=== PATIENT | female | born 1960 | race Caucasian/White ===

== ENCOUNTER → 2016-05-30 | Outpatient (CLI) | payer MEDICARE, MEDICAID ==
[~2016-05-30] VITALS: Ht 157.5 cm; Wt 110.4 kg
[~2016-05-30] MED LIST: ABILIFY30 MG PO; ADDERALL XR15 MG PO; ADDERALL XR20 MG PO; ADDERALL20 MG PO; ADIPEX-P37.5 MG PO; ALBUTEROL0.09 MG/A1 IH; AMBIEN 10MG10 MG PO; AMBIEN 5MG TABLE5 MG PO; AMBIEN10 MG PO; ASPI81EC PO; ASPIRIN 32325 MG/TAB PO; ASPIRIN 81M81 MG/TA2 PO; ASPIRIN E.C. 8181 MG PO; ATARAX 25MG25 MG/TAB PO; ATARAX50 MG; ATARAX50 MG PO; ATENOLOL50 MG PO; ATIVAN 1MG T1 MG/TAB PO; ATIVAN1 MG PO; ATROVENT INHALE14 GM IH; AUGMENTIN 875 M1 TAB PO; B-12500 MCG PO; BUPROPION HCL150 MG PO; CALCIUM 600600 M2 PO; CALCIUM 600MG+D1 TAB PO; CALCIUM CITRAT200 M1 PO; CALCIUM CITRATE1 TA1 PO; CALCIUM600 M1 PO; CANA300T PO; CARDIZEM 30MG T30 MG; CARDIZEM CD 24240 MG PO; CARDIZEM120 MG PO; CEPHALEXIN500 M1 PO; CIPRO 500MG TA500 MG PO; COLACE100 MG/10 PO; COMBINATION CREAM TP; COZAAR 50MG50 MG/TAB PO; CYCLOBENZAPRINE10 MG PO; CYMBALTA 60MG60 MG PO; D-31000 IU PO; DALIRESP PO; DALIRESP500 MCG PO; DARVOCET N 101 UDTAB PO; DEPAKENE250 MG PO; DEPAKOTE500 M1 PO; DILAUDID 2MG TAB2 MG PO; DITROPAN XL10 MG PO; EFFEXOR75 MG PO; ETODOLAC400 MG PO; FAMILY PHARMAC0.4 MG PO; FASTIN30 MG PO; FERRATE325 MG PO; FERROUS SULFAT324 MG PO; GEODON 40MG40 MG PO; GEODON20 MG PO; GEODON60 MG PO; GEODON80 MG PO; HYDROCORTISO28.35 GM TP; HYDROXYZINE50 MG PO; HYZAAR 50-12.1 UDTAB PO; IBU-8800 MG PO; IBUPROFEN200 M1 PO; IBUPROFEN800 MG PO; IMITREX100 MG PO; INVOKANA PO; IRON65 MG PO; Iron; JANUVIA 100MG100 MG PO; KLONOPIN 0.5MG0.5 MG PO; KLONOPIN 1MG1 MG PO; LASIX 20MG TABL20 MG PO; LEVOTHYROXIN0.075 MG PO; LEVOXYL0.025 MG PO; LEVOXYL0.05 MG PO; LEVOXYL0.075 MG PO; LIORESAL 1010 MG/TAB PO; LODINE400 MG PO; LOPID 600M600 MG/TAB PO; LOPID600 MG PO; LORTAB 10/500 51 TAB PO; LORTAB PO; MAXALT10 MG PO; MOTRIN800 MG PO; MOVANTIK25 MG PO; MULTIPLE VITAMI1 CAP PO; MULTIPLE VITAMI1 T23 PO; MULTIPLE VITAMI1 TA7 PO; MYRBETR50MG PO; NAPROSYN 2250 MG/TAB PO; NASAL SPRAY 1515 ML NS; NATURE'S BLE1000 MCG PO; NEURONTIN600 MG/TAB PO; NEURONTIN800 MG/TAB PO; OMEPRAZOLE D/R20 MG PO; OMEPRAZOLE20 MG PO; OXYBUTYNIN5 MG PO; OXYCODONE5 MG PO; OXYCONTIN 20MG20 MG PO; OXYCONTIN30 MG PO; OXYCONTIN60 MG PO; PAMELOR PO; PEPCID 20MG TAB20 MG PO; PERCOCET 325 MG1 TA2 PO; PERCOCET 325 MG1 TAB PO; PERCOCET 5/321 UDTAB PO; PERCOCET 500 MG1 TAB PO; PERCR 7.5 PO; PHENERGAN 25 TA25 MG PO; PHENERGAN W/CO120 ML PO; PHENERGAN25 MG RC; PHENTERMINE15 MG; PRAVACHOL 40MG40 MG PO; PRAVACHOL10 MG; PRIL40 PO; PRILOSEC 20MG20 MG PO; PRILOSEC PO; PROVENTIL0.09 MG/A1 IH; PROVIGIL200 MG PO; RANITIDINE 7575 MG PO; RANITIDINE150 MG PO; REMERON15 MG PO; RISPERDAL0.5 MG PO; RITALIN 20M20 MG/TAB PO; RITALIN10 MG PO; RITE AID CALCI600 MG PO; RT ALBUTER2.5 MG/0.5 IH; SALICYLIC ACID; SENNA LAX8.6 MG PO; SEREVENT IH; SEROQUEL200 MG PO; SEROQUEL300 MG PO; SKELAXIN 800MG800 MG PO; TEMAZEPAM15 MG PO; TIAZAC240 MG PO; TOPAMAX 25MG25 M1 PO; TOPAMAX100 MG PO; TOPIRAMATE PO; UNIPHYL 400MG400 MG PO; VALPROIC ACID250 MG PO; VENTOLIN0.09 MG IH; VESICARE 5MG5 MG PO; VESICARE10 MG PO; VICODIN 5/5001 UDTAB PO; VICTOZA6 MG/ML SC; VICTOZA6 MG/ML SQ; VITAMIN D1000 IU PO; VITAMIN D2000 I1 PO; VITAMIN D31 LIQ PO; VITAMIN D32000 IU PO; WELLBUTRIN PO; XANAX0.25 MG PO; XANAX0.5 MG PO; ZANTAC; ZOCOR10 MG PO; ZOFRAN 4MG T4 MG/TAB PO
[2016-05-30 10:45] VITALS: BP 130/77; PULSE 101
[2016-05-30 11:14] VITALS: BP 130/77; PULSE 101
== END ==
LOC: LIGHT 11:28
DX: E88.81 Metabolic syndrome and other insulin resistance (principal); E11.9 Type 2 diabetes mellitus without complications; E66.01 Morbid (severe) obesity due to excess calories; Z68.41 Body mass index [BMI] 40.0-44.9, adult; E78.4 Other hyperlipidemia

== ENCOUNTER → 2016-06-27 | Outpatient (CLI) | payer MEDICARE, MEDICAID ==
[~2016-06-27] VITALS: Ht 157.5 cm; Wt 110.0 kg
[2016-06-27 13:51] VITALS: BP 127/61; PULSE 104
[2016-06-27 14:18] VITALS: BP 127/61; PULSE 104
== END ==
LOC: LIGHT 10:50
DX: E88.81 Metabolic syndrome and other insulin resistance (principal); E11.9 Type 2 diabetes mellitus without complications; E66.01 Morbid (severe) obesity due to excess calories; Z68.41 Body mass index [BMI] 40.0-44.9, adult; E78.4 Other hyperlipidemia

== ENCOUNTER → 2016-08-01 | Outpatient (CLI) | payer MEDICARE, MEDICAID, OTHER ==
[~2016-08-01] VITALS: Ht 157.5 cm; Wt 111.1 kg
[2016-08-01 11:40] VITALS: BP 116/65; PULSE 90
== END ==
LOC: LIGHT 11:35
DX: E88.81 Metabolic syndrome and other insulin resistance (principal); E78.4 Other hyperlipidemia; E11.9 Type 2 diabetes mellitus without complications; E66.01 Morbid (severe) obesity due to excess calories; Z68.41 Body mass index [BMI] 40.0-44.9, adult

== ENCOUNTER 2016-09-04 08:43 | Outpatient (CLI) | payer MEDICARE, MEDICAID ==
[~2016-09-04] VITALS: Ht 157.5 cm; Wt 112.2 kg
[~2016-09-04 08:43] MED LIST changes: -COMBINATION CREAM TP; -MAXALT10 MG PO; -MYRBETR50MG PO
[2016-09-04] MEDS ORDERED: MAXALT10 MG PO (09:27)
[2016-09-04] MEDS ORDERED: COMBINATION CREAM TP (09:30)
[2016-09-04 09:31] VITALS: BP 148/81; PULSE 79
[2016-09-04 11:10] VITALS: BP 112/56; PULSE 83
[2016-09-04 11:25] VITALS: BP 120/69; PULSE 71
[2016-09-04 11:40] VITALS: BP 121/68; PULSE 71
[2016-09-04 11:55] VITALS: BP 118/68; PULSE 69
== END 2016-09-04 13:00 | disposition home or self-care (01) ==
LOC: COL.RAD 08:43
DX: M51.26 Other intervertebral disc displacement, lumbar region (principal); M54.42 Lumbago with sciatica, left side; M54.41 Lumbago with sciatica, right side; G89.29 Other chronic pain
CPT/HCPCS: Q9965

== ENCOUNTER → 2016-09-05 | Outpatient (CLI) | payer MEDICARE, MEDICAID ==
[~2016-09-05] VITALS: Ht 157.5 cm; Wt 111.6 kg
[~2016-09-05] MED LIST changes: +COMBINATION CREAM TP; +MAXALT10 MG PO; +MYRBETR50MG PO
[2016-09-05 11:08] VITALS: BP 130/62; PULSE 93
== END ==
LOC: LIGHT 10:16
DX: E88.81 Metabolic syndrome and other insulin resistance (principal); E11.9 Type 2 diabetes mellitus without complications; E78.4 Other hyperlipidemia; E66.01 Morbid (severe) obesity due to excess calories; Z68.42 Body mass index [BMI] 45.0-49.9, adult

== ENCOUNTER → 2016-09-09 | Outpatient (CLI) | payer MEDICARE, MEDICAID | LOC: MC.RAD 13:59 | DX: Z12.31 Encounter for screening mammogram for malignant neoplasm of breast (principal) ==

== ENCOUNTER → 2016-10-10 | Outpatient (CLI) | payer MEDICARE, MEDICAID ==
[~2016-10-10] VITALS: Ht 157.5 cm; Wt 113.9 kg
[2016-10-10 09:58] VITALS: BP 132/70; PULSE 102
== END ==
LOC: LIGHT 10:05
DX: E88.81 Metabolic syndrome and other insulin resistance (principal); E11.9 Type 2 diabetes mellitus without complications; E66.01 Morbid (severe) obesity due to excess calories; Z68.42 Body mass index [BMI] 45.0-49.9, adult; Z71.3 Dietary counseling and surveillance; E78.5 Hyperlipidemia, unspecified

== ENCOUNTER 2016-10-16 08:00 | Outpatient (RCR) | payer MEDICARE, MEDICAID, OTHER ==
[~2016-10-16 08:00] MED LIST changes: -MYRBETR50MG PO
== END 2016-11-04 | disposition still patient (30) ==
LOC: WSPT
DX: M47.896 Other spondylosis, lumbar region (principal)
CPT/HCPCS: G8978-GP; G8979-GP

== ENCOUNTER 2016-11-05 08:06 | Outpatient (RCR) | payer MEDICARE, MEDICAID | END 2016-11-13 10:34 | LOC: WSPT 08:06 | DX: Z53.8 Procedure and treatment not carried out for other reasons (principal) ==

== ENCOUNTER → 2016-11-07 | Outpatient (CLI) | payer MEDICARE, MEDICAID ==
[~2016-11-07] VITALS: Ht 157.5 cm; Wt 114.8 kg
[~2016-11-07] MED LIST changes: +MYRBETR50MG PO
[2016-11-07 13:48] VITALS: BP 108/60; PULSE 96
== END ==
LOC: LIGHT 13:45
DX: E88.81 Metabolic syndrome and other insulin resistance (principal); E11.9 Type 2 diabetes mellitus without complications; E66.01 Morbid (severe) obesity due to excess calories; Z68.42 Body mass index [BMI] 45.0-49.9, adult; Z71.3 Dietary counseling and surveillance; E78.5 Hyperlipidemia, unspecified

== ENCOUNTER 2016-12-05 09:33 | Inpatient (IN) | payer MEDICARE, MEDICAID ==
[~2016-12-05] VITALS: Ht 157.5 cm; Wt 120.0 kg
[~2016-12-05 09:33] MED LIST changes: -MYRBETR50MG PO
[2017-01-06] MEDS ORDERED: ATIVAN 1MG T1 MG/TAB PO (12:24)
[2017-01-06] MEDS ORDERED: MYRBETR50MG PO (12:26)
[2017-01-07] VITALS (11 sets, daily range): BP systolic 108–178; BP diastolic 56–83; PULSE 80–106; TEMP 98.5–99.4
[2017-01-08 00:24] VITALS: BP 140/58; PULSE 102; TEMP 98.5
[2017-01-08 04:00] VITALS: BP 169/73; PULSE 109; TEMP 98.5
[2017-01-08 07:26] LABS: HEMATOCRIT 35.3 % (37.0-47.0); HEMOGLOBIN 11.8 g/dl (12.5-16.0)
[2017-01-08 08:03] VITALS: BP 158/62; PULSE 119; TEMP 98.9
[2017-01-08 11:35] VITALS: BP 162/70; PULSE 105; TEMP 98.5
[2017-01-08 15:50] VITALS: BP 172/83; PULSE 107; TEMP 98.2
[2017-01-08 20:08] VITALS: BP 171/73; PULSE 114; TEMP 99
[2017-01-09 00:36] VITALS: BP 152/67; PULSE 106; TEMP 98.2
[2017-01-09 04:35] VITALS: BP 137/67; PULSE 110; TEMP 98
[2017-01-09 07:24] LABS: HEMOGLOBIN 12.6 g/dl (12.5-16.0)
[2017-01-09 07:26] VITALS: BP 146/76; PULSE 107; TEMP 98.6
[2017-01-09 11:30] VITALS: BP 147/72; PULSE 124; TEMP 97.3
[2017-01-09 15:50] VITALS: BP 142/72; PULSE 107; TEMP 98.1
[2017-01-09 20:00] VITALS: BP 127/68; PULSE 107; TEMP 97.5
[2017-01-10] VITALS: BP 129/60; PULSE 99; TEMP 98.6
[2017-01-10 04:03] VITALS: BP 160/87; PULSE 111; TEMP 97.7
[2017-01-10 07:12] VITALS: BP 129/63; PULSE 102; TEMP 98
[2017-01-10 11:48] VITALS: BP 112/84; PULSE 128; TEMP 98.7
[2017-01-10] MEDS ORDERED: OXYCONTIN 20MG20 MG PO (12:05)
== END 2017-01-10 15:09 | disposition home or self-care (01) | DRG 470 ==
LOC: JCC 01-07 05:57
PROVIDERS: Orthopaedic Surgery
PROC: 0SRD0J9 Replacement of Left Knee Joint with Synthetic Substitute, Cemented, Open Approach (ICD-10-PCS; principal; 2017-01-07 09:45)
DX: M17.12 Unilateral primary osteoarthritis, left knee (principal); Z68.42 Body mass index [BMI] 45.0-49.9, adult; F31.9 Bipolar disorder, unspecified; E11.9 Type 2 diabetes mellitus without complications; I10 Essential (primary) hypertension; J45.909 Unspecified asthma, uncomplicated; E66.01 Morbid (severe) obesity due to excess calories
CPT/HCPCS: A9284; C1713; C1776; J0690; J1170; J2250; J2704; J3010; J7042

== ENCOUNTER → 2017-01-20 | Outpatient (CLI) | payer MEDICARE, MEDICAID ==
[~2017-01-20] MED LIST changes: +MYRBETR50MG PO
== END ==
LOC: COL.VAS 12:40
DX: M79.89 Other specified soft tissue disorders (principal); Z96.652 Presence of left artificial knee joint

== ENCOUNTER → 2017-02-27 | Outpatient (CLI) | payer MEDICARE, MEDICAID | LOC: COL.RAD 07:23 | DX: R10.11 Right upper quadrant pain (principal) ==

== ENCOUNTER → 2017-03-06 | Outpatient (CLI) | payer MEDICARE, MEDICAID ==
[~2017-03-06] VITALS: Ht 157.5 cm; Wt 114.1 kg
[~2017-03-06] MED LIST changes: +RELPAX20 MG
[2017-03-06 11:25] VITALS: BP 114/70; PULSE 108
== END ==
LOC: LIGHT 10:42
DX: E88.81 Metabolic syndrome and other insulin resistance (principal); E11.9 Type 2 diabetes mellitus without complications; E66.01 Morbid (severe) obesity due to excess calories; Z68.42 Body mass index [BMI] 45.0-49.9, adult; Z71.3 Dietary counseling and surveillance; E78.5 Hyperlipidemia, unspecified

== ENCOUNTER → 2017-05-01 | Outpatient (CLI) | payer MEDICARE, MEDICAID ==
[~2017-05-01] VITALS: Ht 157.5 cm; Wt 112.0 kg
[2017-05-01 10:46] VITALS: BP 140/76; PULSE 80
== END ==
LOC: LIGHT 10:34
DX: E88.81 Metabolic syndrome and other insulin resistance (principal); E11.9 Type 2 diabetes mellitus without complications; E66.01 Morbid (severe) obesity due to excess calories; Z68.42 Body mass index [BMI] 45.0-49.9, adult; Z71.3 Dietary counseling and surveillance; E78.5 Hyperlipidemia, unspecified

== ENCOUNTER → 2017-06-03 | Outpatient (CLI) | payer MEDICARE, MEDICAID | LOC: BHSO 10:42 | DX: F43.10 Post-traumatic stress disorder, unspecified (principal) ==

== ENCOUNTER 2017-06-06 12:19 | Inpatient (IN) | payer MEDICARE, MEDICAID ==
[~2017-06-06] VITALS: Ht 157.5 cm; Wt 116.9 kg
[~2017-06-06 12:19] MED LIST changes: -RELPAX20 MG; +RELPAX20 MG PO
[2017-06-12] MEDS ORDERED: TOPROL XL 50MG50 MG PO (11:17)
[2017-06-12] MEDS ORDERED: NORCO 325 MG-7.1 TAB PO (11:19)
[2017-07-31] MEDS ORDERED: [UNRECOGNIZED DRUG - OTHER] PO (10:11)
[2017-08-04] MEDS ORDERED: NORCO 325 MG-101 TAB PO (11:05)
[2017-08-04] MEDS ORDERED: ATARAX50 MG PO (11:06)
[2017-08-04] MEDS ORDERED: FLONASE NASAL S16 GM NS (11:06)
[2017-08-04] MEDS ORDERED: MAG-OX 400400 MG/TAB PO (11:07)
[2017-08-04] MEDS ORDERED: FLEXERIL 1010 MG/TAB PO (11:08)
[2017-08-04] MEDS ORDERED: D3-5050000 IU PO (11:08)
[2017-08-04] MEDS ORDERED: ZOFRAN 4MG T4 MG/TAB PO (11:08)
[2017-08-05] VITALS (11 sets, daily range): BP systolic 109–139; BP diastolic 58–72; PULSE 4–100; TEMP 97–98.5
[2017-08-06 00:44] VITALS: BP 142/71; PULSE 100; TEMP 98.5
[2017-08-06 05:30] VITALS: BP 152/78; PULSE 100; TEMP 98.2
[2017-08-06 06:54] LABS: HEMATOCRIT 31.3 % (37.0-47.0); HEMOGLOBIN 10.2 g/dl (12.5-16.0)
[2017-08-06 07:55] VITALS: BP 125/61; PULSE 105; TEMP 98.7
[2017-08-06 15:46] VITALS: BP 105/63; PULSE 99; TEMP 99
[2017-08-06 20:00] VITALS: BP 130/56; PULSE 107; TEMP 98.7
[2017-08-06 23:23] VITALS: BP 141/65; PULSE 106; TEMP 98.8
[2017-08-07 03:47] VITALS: BP 130/47; PULSE 100; PULSE 115; TEMP 100.7; TEMP 99.3
[2017-08-07 07:54] VITALS: BP 137/46; PULSE 108; TEMP 99.4
[2017-08-07 12:08] VITALS: BP 122/64; PULSE 101; TEMP 98.5
[2017-08-07 16:33] VITALS: BP 118/68; PULSE 96; TEMP 98.3
[2017-08-07 19:20] VITALS: BP 129/53; PULSE 98; TEMP 97.8
[2017-08-07 23:46] VITALS: BP 128/54; PULSE 106; TEMP 98.8
[2017-08-08 04:17] VITALS: BP 119/60; PULSE 106; TEMP 99.7
[2017-08-08 07:40] VITALS: BP 144/68; PULSE 117; TEMP 99.2
[2017-08-08 11:11] VITALS: BP 144/68; PULSE 117; TEMP 99.2
== END 2017-08-08 11:35 | DRG 470 ==
LOC: JCC 08-05 05:17
PROVIDERS: Orthopaedic Surgery
PROC: 0SRB0JA Replacement of Left Hip Joint with Synthetic Substitute, Uncemented, Open Approach (ICD-10-PCS; principal; 2017-08-05 07:30)
DX: M16.12 Unilateral primary osteoarthritis, left hip (principal); Z68.42 Body mass index [BMI] 45.0-49.9, adult; E11.42 Type 2 diabetes mellitus with diabetic polyneuropathy; I10 Essential (primary) hypertension; J45.909 Unspecified asthma, uncomplicated; E66.01 Morbid (severe) obesity due to excess calories; M16.52 Unilateral post-traumatic osteoarthritis, left hip; F43.10 Post-traumatic stress disorder, unspecified; F31.9 Bipolar disorder, unspecified
CPT/HCPCS: A4314; A9284; C1713; C1776; J0171; J0690; J2250; J2405; J2704; J3010; J7030

== ENCOUNTER → 2017-06-12 | Outpatient (CLI) | payer MEDICARE, MEDICAID ==
[~2017-06-12] VITALS: Ht 157.5 cm; Wt 114.3 kg
[~2017-06-12] MED LIST changes: +NORCO 325 MG-7.1 TAB PO; +RELPAX20 MG; -RELPAX20 MG PO; +TOPROL XL 50MG50 MG PO
[2017-06-12 11:19] VITALS: BP 114/56; PULSE 72
== END ==
LOC: LIGHT
DX: E88.81 Metabolic syndrome and other insulin resistance (principal); E11.9 Type 2 diabetes mellitus without complications; E66.01 Morbid (severe) obesity due to excess calories; Z68.42 Body mass index [BMI] 45.0-49.9, adult; Z71.3 Dietary counseling and surveillance; E78.5 Hyperlipidemia, unspecified
CPT/HCPCS: G0463

== ENCOUNTER → 2017-06-19 | Outpatient (CLI) | payer MEDICARE, MEDICAID | LOC: COL.RAD 08:06 | DX: R68.81 Early satiety (principal); R11.0 Nausea | CPT/HCPCS: A9541 ==

== ENCOUNTER → 2017-06-20 | Outpatient (CLI) | payer MEDICARE, MEDICAID | LOC: COL.RAD 09:15 | DX: K44.9 Diaphragmatic hernia without obstruction or gangrene (principal); R13.10 Dysphagia, unspecified; R11.0 Nausea ==

== ENCOUNTER → 2017-06-24 | Outpatient (CLI) | payer MEDICARE, MEDICAID ==
[2017-06-24 10:08] LABS: HEMATOCRIT 39.3 % (37.0-47.0); HEMOGLOBIN 12.9 g/dl (12.5-16.0); MEAN CELL VOLUME 87 fl (80.0-100.0); MEAN CORPUSCULAR HEMOGLOBIN 29 pg (27.0-31.0); MEAN CORPUSCULAR HGB CONC 33 g/dl (33.0-37.0); MEAN PLATELET VOLUME 10.4 fl (7.4-10.4); PLATELET COUNT 210 K/mm3 (130-400); REDCELL DISTRIBUTION WIDTH-CV 13.9 % (11.5-14.5)
[2017-06-24 10:39] LABS: ERYTHROCYTE SEDIMENTATION RATE 23 mm/hr (0-30)
== END ==
LOC: COL.LAB 09:30
PROVIDERS: Orthopaedic Surgery
DX: Z47.1 Aftercare following joint replacement surgery (principal); M25.561 Pain in right knee; Z96.651 Presence of right artificial knee joint

== ENCOUNTER → 2017-07-03 | Outpatient (CLI) | payer MEDICARE, MEDICAID | LOC: BHSO 09:37 | DX: F43.10 Post-traumatic stress disorder, unspecified (principal) | CPT/HCPCS: G0463 ==

== ENCOUNTER 2017-07-12 18:22 | Emergency (ER) | payer MEDICARE, MEDICAID ==
[~2017-07-12] VITALS: Ht 157.5 cm; Wt 113.6 kg
[2017-07-12 18:23] VITALS: BP 143/97; TEMP 98.1
[2017-07-12 20:29] VITALS: PULSE 77
== END 2017-07-12 20:29 | disposition home or self-care (01) ==
LOC: COL.ER 18:22
DX: G43.909 Migraine, unspecified, not intractable, without status migrainosus (principal); E78.5 Hyperlipidemia, unspecified; E03.9 Hypothyroidism, unspecified; E11.9 Type 2 diabetes mellitus without complications; I10 Essential (primary) hypertension; F43.10 Post-traumatic stress disorder, unspecified; J45.909 Unspecified asthma, uncomplicated; Z79.84 Long term (current) use of oral hypoglycemic drugs; Z79.82 Long term (current) use of aspirin
CPT/HCPCS: J1630; J1885; J2550

== ENCOUNTER → 2017-07-28 | Outpatient (CLI) | payer MEDICARE, MEDICAID | LOC: COL.LAB 09:57 | DX: Z01.812 Encounter for preprocedural laboratory examination (principal); M25.852 Other specified joint disorders, left hip ==

== ENCOUNTER → 2017-07-31 | Outpatient (CLI) | payer MEDICARE, MEDICAID ==
[~2017-07-31] VITALS: Ht 157.5 cm; Wt 115.9 kg
[~2017-07-31] MED LIST changes: +D3-5050000 IU PO; +FLEXERIL 1010 MG/TAB PO; +FLONASE NASAL S16 GM NS; +MAG-OX 400400 MG/TAB PO; +NORCO 325 MG-101 TAB PO; -RELPAX20 MG; +RELPAX20 MG PO; +[UNRECOGNIZED DRUG - OTHER] PO
[2017-07-31 10:12] VITALS: BP 114/76; PULSE 92
== END ==
LOC: LIGHT
DX: E88.81 Metabolic syndrome and other insulin resistance (principal); E11.9 Type 2 diabetes mellitus without complications; E66.01 Morbid (severe) obesity due to excess calories; Z68.42 Body mass index [BMI] 45.0-49.9, adult; Z71.3 Dietary counseling and surveillance; E78.5 Hyperlipidemia, unspecified
CPT/HCPCS: G0463

== ENCOUNTER → 2017-09-11 | Outpatient (CLI) | payer MEDICARE, MEDICAID | LOC: BHSO 09:17 | DX: F43.10 Post-traumatic stress disorder, unspecified (principal) | CPT/HCPCS: G0463 ==

== ENCOUNTER 2017-12-10 08:15 | Outpatient (RCR) | payer MEDICARE, MEDICAID | END 2017-12-11 11:47 | disposition home or self-care (01) | LOC: MKS.ESL.PT 08:15 | DX: Z47.1 Aftercare following joint replacement surgery (principal); Z96.642 Presence of left artificial hip joint | CPT/HCPCS: G8978-GP; G8979-GP; G8980-GP ==

== ENCOUNTER → 2018-01-01 | Outpatient (CLI) | payer MEDICARE, MEDICAID | LOC: BHSO 10:38 | DX: F43.10 Post-traumatic stress disorder, unspecified (principal) | CPT/HCPCS: G0463 ==

== ENCOUNTER → 2018-02-26 | Outpatient (CLI) | payer MEDICARE, MEDICAID | LOC: BHSO 11:40 | DX: F43.10 Post-traumatic stress disorder, unspecified (principal) | CPT/HCPCS: G0463 ==

== ENCOUNTER → 2018-04-02 | Outpatient (CLI) | payer MEDICARE, MEDICAID | LOC: BHSO 09:09 | DX: F43.10 Post-traumatic stress disorder, unspecified (principal) | CPT/HCPCS: G0463 ==

== ENCOUNTER → 2018-05-28 | Outpatient (CLI) | payer MEDICARE, MEDICAID | LOC: BHSO 10:16 | DX: F43.10 Post-traumatic stress disorder, unspecified (principal) | CPT/HCPCS: G0463 ==

== ENCOUNTER → 2018-08-06 | Outpatient (CLI) | payer MEDICARE | LOC: BHSO 10:08 | DX: F43.10 Post-traumatic stress disorder, unspecified (principal) | CPT/HCPCS: G0463 ==

== ENCOUNTER → 2018-10-07 | Outpatient (CLI) | payer MEDICARE | LOC: BHSO 09:56 | DX: F43.10 Post-traumatic stress disorder, unspecified (principal) | CPT/HCPCS: G0463 ==

== ENCOUNTER → 2018-12-08 | Outpatient (CLI) | payer MEDICARE | LOC: BHSO 10:21 | DX: F43.10 Post-traumatic stress disorder, unspecified (principal) | CPT/HCPCS: G0463 ==

== ENCOUNTER → 2019-02-01 | Outpatient (CLI) | payer MEDICARE | LOC: MC.RAD 09:45 | DX: Z12.31 Encounter for screening mammogram for malignant neoplasm of breast (principal) ==

== ENCOUNTER 2019-02-09 13:04 | Emergency (ER) | payer MEDICARE ==
[~2019-02-09] VITALS: Ht 157.5 cm; Wt 113.6 kg
[2019-02-09 13:09] VITALS: TEMP 98.4
[2019-02-09 13:34] LABS: COLLECTION METHOD CLEAN CATCH
[2019-02-09 13:41] LABS: MUCOUS Present /lpf; PH 7 (5-8); SQUAMOUS EPITHELIAL None Seen /hpf; URINE APPEARANCE Hazy; URINE BACTERIA None Seen /hpf; URINE BILIRUBIN Negative (NEGATIVE); URINE BLOOD Negative (NEGATIVE); URINE COLOR Yellow; URINE GLUCOSE Negative (NEGATIVE); URINE KETONE Negative (NEGATIVE); URINE LEUKOCYTE ESTERASE Negative (NEGATIVE); URINE NITRATE Negative (NEGATIVE); URINE PROTEIN(semi-quant) Negative (NEGATIVE); URINE RBC 0-2 /hpf; URINE UROBILINOGEN Negative (NEGATIVE)
[2019-02-09 13:53] LABS: TRICYCLIC ANTIDEPRESS URINE NEGATIVE
[2019-02-09 14:20] LABS: BASO % 0.5 % (0.0-2.0); EOS # 0.1 (0.0-0.7); EOS % 1.2 % (0-4.0); GRAN # 5.5 (1.4-6.5); GRAN % 65.3 % (42.2-75.2); HEMATOCRIT 43.1 % (37.0-47.0); HEMOGLOBIN 14.1 g/dl (12.5-16.0); LYMPH # 2.3 (1.2-3.4); LYMPH % 26.8 % (20.0-51.0); MEAN CELL VOLUME 90 fl (80.0-100.0); MEAN CORPUSCULAR HEMOGLOBIN 29 pg (27.0-31.0); MEAN CORPUSCULAR HGB CONC 33 g/dl (33.0-37.0); MEAN PLATELET VOLUME 9.1 fl (7.4-10.4); MONO # 0.5 (0.1-0.6); PLATELET COUNT 296 K/mm3 (130-400); RED BLOOD COUNT 4.81 M/mm3 (4.10-5.30); REDCELL DISTRIBUTION WIDTH-CV 14.5 % (11.5-14.5)
[2019-02-09 14:25] LABS: ALANINE AMINOTRANSFERASE 11 U/L (9-52); ALBUMIN 4.6 gm/dL (3.5-5.0); ALKALINE PHOSPHATASE 104 U/L (50-136); ANION GAP 9 mmol/L (7-16); AST,SGOT 16 U/L (15-37); BILIRUBIN,TOTAL 0.4 mg/dL (0.0-1.0); BLOOD UREA NITROGEN 14 mg/dL (7-17); CALCIUM 9.5 mg/dL (8.4-10.2); CARBON DIOXIDE 27 mmol/L (22-30); CHLORIDE 105 mmol/L (98-107); CREATININE, serum 1.15 (0.52-1.25); GLUCOSE 157 mg/dL (74-106); POTASSIUM 4.1 mmol/L (3.4-5.0); SODIUM 141 mmol/L (137-145)
[2019-02-09 14:28] LABS: ACETAMINOPHEN < 10 ug/mL (10-30); ALCOHOL(ethanol),MEDICAL < 10 mg/dL; SALICYLATE < 1.0 mg/dL
[2019-02-09 14:56] LABS: TSH w REFLEX 0.388 uIU/mL (0.465-4.680)
--- NOTE | 2019-02-09 15:26 | NUR ---
pond worker and Carolin met with emergency room nurse and then with patient. 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 Patient states she does not have the finances to support a short term [place] [facility] placement for her spouse, rather wants her son, Jerardo Warner #[phone], to contact patient's sons Abimael Iverson #[phone] and Haseeb Iverson #[phone] to arrange care and authorizes worker to share why patient is in the emergency room. Worker contacted Jerardo and he states he will contact Abimael. Abimael contacts worker and meets with worker in the emergency room. Abimael states he and his brothers will provide and arrange 24hour care and understands that patient may be hospitalized due to stressors. Eboni and Carolin provided written and verbal information on options for retirement care, if that is what family decides.
[2019-02-09 19:00] VITALS: BP 118/79; PULSE 88
== END 2019-02-09 19:04 | disposition home or self-care (01) ==
LOC: COL.ER 13:04
PROVIDERS: Nurse Practitioner
DX: F32.9 Major depressive disorder, single episode, unspecified (principal); R45.851 Suicidal ideations; F43.10 Post-traumatic stress disorder, unspecified; Z79.82 Long term (current) use of aspirin

== ENCOUNTER → 2019-02-17 | Outpatient (CLI) | payer MEDICARE | LOC: BHSO 10:19 | DX: F43.10 Post-traumatic stress disorder, unspecified (principal) | CPT/HCPCS: G0463 ==

== ENCOUNTER 2019-02-25 13:25 | Emergency (ER) | payer MEDICARE ==
[~2019-02-25] VITALS: Ht 157.5 cm; Wt 113.6 kg
[2019-02-25 13:35] VITALS: BP 151/71; PULSE 77; TEMP 98.6
== END 2019-02-25 13:45 | disposition left against medical advice (07) ==
LOC: COL.ER 13:25
DX: R73.09 Other abnormal glucose (principal); Z79.82 Long term (current) use of aspirin

== ENCOUNTER → 2019-03-18 | Outpatient (CLI) | payer MEDICARE | LOC: BHSO 10:32 | DX: F43.10 Post-traumatic stress disorder, unspecified (principal) | CPT/HCPCS: G0463 ==

== ENCOUNTER 2019-04-03 10:43 | Emergency (ER) | payer MEDICARE ==
[2019-04-03 10:45] VITALS: TEMP 96.1
[2019-04-03 11:28] LABS: BASO % 0.6 % (0.0-2.0); EOS # 0.1 (0.0-0.7); EOS % 2.4 % (0-4.0); GRAN # 2.4 (1.4-6.5); GRAN % 44.9 % (42.2-75.2); HEMATOCRIT 38.2 % (37.0-47.0); HEMOGLOBIN 12.3 g/dl (12.5-16.0); LYMPH # 2.4 (1.2-3.4); LYMPH % 45.5 % (20.0-51.0); MEAN CELL VOLUME 90 fl (80.0-100.0); MEAN CORPUSCULAR HEMOGLOBIN 29 pg (27.0-31.0); MEAN CORPUSCULAR HGB CONC 32 g/dl (33.0-37.0); MONO # 0.4 (0.1-0.6); MONO % 6.6 % (1.7-9.3); PLATELET COUNT 213 K/mm3 (130-400); RED BLOOD COUNT 4.27 M/mm3 (4.10-5.30); REDCELL DISTRIBUTION WIDTH-CV 13.7 % (11.5-14.5)
[2019-04-03 11:43] LABS: ALANINE AMINOTRANSFERASE < 6 U/L (9-52); ALKALINE PHOSPHATASE 85 U/L (50-136); ANION GAP 8 mmol/L (7-16); AST,SGOT 15 U/L (15-37); BILIRUBIN,TOTAL 0.3 mg/dL (0.0-1.0); BLOOD UREA NITROGEN 15 mg/dL (7-17); C-REACTIVE PROTEIN 1.2 mg/dL (0.0-0.9); CALCIUM 9.5 mg/dL (8.4-10.2); CARBON DIOXIDE 29 mmol/L (22-30); CHLORIDE 104 mmol/L (98-107); CREATININE, serum 1.13 (0.52-1.25); GLUCOSE 99 mg/dL (74-106); POTASSIUM 3.8 mmol/L (3.4-5.0); SODIUM 141 mmol/L (137-145)
[2019-04-03 11:50] LABS: ACETAMINOPHEN < 10 ug/mL (10-30); ALCOHOL(ethanol),MEDICAL < 10 mg/dL; SALICYLATE < 1.0 mg/dL
[2019-04-03 11:53] LABS: TROPONIN-I < 0.012 ng/mL (0.000-0.035)
[2019-04-03 14:19] LABS: COLLECTION METHOD CLEAN CATCH
[2019-04-03 14:29] LABS: PH 6 (5-8); SQUAMOUS EPITHELIAL 0-2 /hpf; URINE APPEARANCE Clear; URINE BACTERIA None Seen /hpf; URINE BILIRUBIN Negative (NEGATIVE); URINE BLOOD Negative (NEGATIVE); URINE COLOR Yellow; URINE GLUCOSE Negative (NEGATIVE); URINE KETONE Negative (NEGATIVE); URINE LEUKOCYTE ESTERASE Trace (NEGATIVE); URINE NITRATE Negative (NEGATIVE); URINE PROTEIN(semi-quant) Negative (NEGATIVE); URINE RBC 0-2 /hpf; URINE UROBILINOGEN Negative (NEGATIVE)
[2019-04-03 14:33] LABS: TRICYCLIC ANTIDEPRESS URINE NEGATIVE
[2019-04-03 15:41] VITALS: BP 142/94; PULSE 88
== END 2019-04-03 15:41 | disposition home or self-care (01) ==
LOC: COL.ER 10:43
PROVIDERS: Emergency Medicine
DX: N39.0 Urinary tract infection, site not specified (principal); I10 Essential (primary) hypertension; E03.9 Hypothyroidism, unspecified; Z79.82 Long term (current) use of aspirin
CPT/HCPCS: J1630

== ENCOUNTER → 2019-05-06 | Outpatient (CLI) | payer MEDICARE | LOC: BHSO 10:21 | DX: F43.10 Post-traumatic stress disorder, unspecified (principal) | CPT/HCPCS: G0463 ==

== ENCOUNTER → 2019-07-30 | Outpatient (CLI) | payer MEDICARE | LOC: BHSO 10:16 | DX: F43.10 Post-traumatic stress disorder, unspecified (principal) | CPT/HCPCS: G0463 ==

== ENCOUNTER → 2019-12-02 | Outpatient (CLI) | payer MEDICARE ==
[~2019-12-02] VITALS: Ht 157.5 cm; Wt 97.5 kg
[~2019-12-02] MED LIST changes: +00186-0372-20 IH; +AIMOVIG AU70 MG/1 M1 SQ; +BELSOMRA20 MG PO; +BOTOX 100100 U/VIAL; +BYDUREON PEN2 MG SQ; +CHLORHEXIDINE 4% TOP; +LAMICTAL 100MG100 MG PO; +MASON NATURAL2000 IU PO; +UBRELVY50 MG; +VIIBRYD40 MG PO; +ZANAFLEX 4MG TAB4 MG PO
[2019-12-02 16:42] VITALS: BP 124/80; PULSE 100
== END ==
LOC: LIGHT 11:41
DX: E66.8 Other obesity (principal); Z68.39 Body mass index [BMI] 39.0-39.9, adult; E11.9 Type 2 diabetes mellitus without complications; E88.81 Metabolic syndrome and other insulin resistance; E78.5 Hyperlipidemia, unspecified
CPT/HCPCS: G0463

== ENCOUNTER 2019-12-12 19:49 | Emergency (ER) | payer MEDICARE ==
[~2019-12-12] VITALS: Ht 157.5 cm; Wt 93.2 kg
[2019-12-12 19:58] VITALS: TEMP 98.2
[2019-12-12 20:41] LABS: BASO % 0.3 % (0.0-2.0); EOS # 0.1 (0.0-0.7); EOS % 1.4 % (0-4.0); GRAN # 5.8 (1.4-6.5); GRAN % 62.8 % (42.2-75.2); HEMATOCRIT 42.9 % (37.0-47.0); HEMOGLOBIN 14.1 g/dl (12.5-16.0); LYMPH # 2.7 (1.2-3.4); LYMPH % 28.8 % (20.0-51.0); MEAN CELL VOLUME 90 fl (80.0-100.0); MEAN CORPUSCULAR HEMOGLOBIN 30 pg (27.0-31.0); MEAN CORPUSCULAR HGB CONC 33 g/dl (33.0-37.0); MEAN PLATELET VOLUME 9.2 fl (7.4-10.4); MONO # 0.6 (0.1-0.6); MONO % 6.5 % (1.7-9.3); PLATELET COUNT 276 K/mm3 (130-400); RED BLOOD COUNT 4.78 M/mm3 (4.10-5.30); REDCELL DISTRIBUTION WIDTH-CV 14.4 % (11.5-14.5)
[2019-12-12] MEDS ORDERED: ADDERALL XR20 MG PO (20:42)
[2019-12-12] MEDS ORDERED: AIMOVIG AU70 MG/1 M1 SQ (20:43)
[2019-12-12] MEDS ORDERED: AMOXICILLIN 50500 MG PO (20:45)
[2019-12-12] MEDS ORDERED: ASPIRIN 81M81 MG/TA2 PO (20:46)
[2019-12-12] MEDS ORDERED: ATROVENT I0.2 MG/1 M IH (20:47)
[2019-12-12] MEDS ORDERED: BELSOMRA20 MG PO (20:48)
[2019-12-12] MEDS ORDERED: BYDUREON PEN2 MG SQ (20:49)
[2019-12-12] MEDS ORDERED: DALIRESP500 MCG PO (20:49)
[2019-12-12] MEDS ORDERED: BOTOX 100100 U/VIAL IM (20:49)
[2019-12-12] MEDS ORDERED: PRILOSEC 20MG20 MG PO (20:50)
[2019-12-12] MEDS ORDERED: RELPAX 40MG TAB40 MG PO (20:50)
[2019-12-12 20:53] LABS: ALBUMIN 4.4 gm/dL (3.5-5.0); BILIRUBIN,TOTAL 0.7 mg/dL (0.0-1.0); C-REACTIVE PROTEIN 1.7 mg/dL (0.0-0.9); CREATININE, serum 1.23 (0.52-1.25); MAGNESIUM 1.9 mg/dL (1.6-2.3); POTASSIUM 4.2 mmol/L (3.4-5.0); TOTAL PROTEIN 7.8 gm/dL (6.4-8.2)
[2019-12-12] MEDS ORDERED: LAMICTAL200 MG PO (20:53)
[2019-12-12] MEDS ORDERED: NORCO 325 MG-101 TAB PO (20:53)
[2019-12-12] MEDS ORDERED: ATIVAN 0.50.5 MG/TAB PO (20:54)
[2019-12-12] MEDS ORDERED: MAG-OX 400400 MG/TAB PO (20:54)
[2019-12-12] MEDS ORDERED: PRAVACHOL 40MG40 MG PO (20:55)
[2019-12-12] MEDS ORDERED: TOPROL XL 50MG50 MG PO (20:55)
[2019-12-12] MEDS ORDERED: THEO-24400 MG PO (20:56)
[2019-12-12] MEDS ORDERED: ZANAFLEX CAPSULE4 MG PO (20:56)
[2019-12-12] MEDS ORDERED: LOMAIRA8 MG PO (20:57)
[2019-12-12] MEDS ORDERED: VIIBRYD40 MG PO (20:58)
[2019-12-12] MEDS ORDERED: MASON NATURAL2000 IU PO (20:58)
[2019-12-12] MEDS ORDERED: ZOFRAN 4MG T4 MG/TAB PO (20:59)
[2019-12-12] MEDS ORDERED: GEODON60 MG PO (20:59)
[2019-12-12 21:01] LABS: ERYTHROCYTE SEDIMENTATION RATE 33 mm/hr (0-30)
[2019-12-12 22:17] VITALS: BP 149/97; PULSE 94
== END 2019-12-12 22:19 | disposition home or self-care (01) ==
LOC: COL.ER 19:49
PROVIDERS: Physician Assistant
DX: M25.572 Pain in left ankle and joints of left foot (principal); K21.9 Gastro-esophageal reflux disease without esophagitis; F32.9 Major depressive disorder, single episode, unspecified; E78.5 Hyperlipidemia, unspecified; E11.9 Type 2 diabetes mellitus without complications; I10 Essential (primary) hypertension; Z79.82 Long term (current) use of aspirin; Z90.710 Acquired absence of both cervix and uterus; Z79.84 Long term (current) use of oral hypoglycemic drugs

== ENCOUNTER → 2019-12-14 | Outpatient (CLI) | payer MEDICARE ==
[~2019-12-14] MED LIST changes: +AMOXICILLIN 50500 MG PO; +ATIVAN 0.50.5 MG/TAB PO; +ATROVENT I0.2 MG/1 M IH; +BOTOX 100100 U/VIAL IM; +LAMICTAL200 MG PO; +LOMAIRA8 MG PO; +RELPAX 40MG TAB40 MG PO; +THEO-24400 MG PO; +ZANAFLEX CAPSULE4 MG PO
== END ==
LOC: COL.CARD 09:00
DX: H53.9 Unspecified visual disturbance (principal); R79.1 Abnormal coagulation profile
CPT/HCPCS: A9585

== ENCOUNTER → 2020-02-03 | Outpatient (CLI) | payer MEDICARE | LOC: BHSO 10:15 | DX: F41.1 Generalized anxiety disorder (principal) | CPT/HCPCS: G0463 ==

== ENCOUNTER 2020-05-05 09:35 | Outpatient (CLI) | payer OTHER ==
[~2020-05-05] VITALS: Ht 157.5 cm; Wt 91.2 kg
[~2020-05-05 09:35] MED LIST changes: +CRESTOR40 MG PO; +UBRELVY50 MG PO
[2020-05-05 09:56] VITALS: BP 156/76; PULSE 84
[2020-05-05 11:15] VITALS: BP 144/77; PULSE 79
[2020-05-05 11:30] VITALS: BP 131/73; PULSE 72
[2020-05-05 11:45] VITALS: BP 137/70; PULSE 76
[2020-05-05 11:52] LABS: GLUCOSE,CSF 50 mg/dL (40-70); TOTAL PROTEIN,CSF 63 mg/dL (15-45)
[2020-05-05 12:00] VITALS: BP 125/72; PULSE 73
[2020-05-05 12:14] LABS: CSF APPEARANCE CLEAR; CSF COLOR COLORLESS
[2020-05-05 12:15] VITALS: BP 138/71; PULSE 71
[2020-05-05 12:15] LABS: CSF MONONUCLEAR 96 % (70-100); CSF POLYMORPHONUCLEAR 2 % (0-6); CSF RBC 76 /mm3 (0-0)
--- NOTE | 2020-05-05 12:28 | NUR ---
Discharge instructions given to pt.Pt verbalizes understanding.Pt escorted out by this nurse
== END 2020-05-05 12:30 | disposition home or self-care (01) ==
LOC: COL.RAD 09:35
PROVIDERS: Nurse Practitioner
DX: G43.709 Chronic migraine without aura, not intractable, without status migrainosus (principal); M54.2 Cervicalgia; Z98.890 Other specified postprocedural states

== ENCOUNTER → 2020-05-08 | Outpatient (CLI) | payer OTHER | LOC: COL.RAD 04-12 12:30 | DX: M48.02 Spinal stenosis, cervical region (principal); M47.812 Spondylosis without myelopathy or radiculopathy, cervical region; Z98.890 Other specified postprocedural states | CPT/HCPCS: A9585 ==

== ENCOUNTER → 2020-05-12 | Outpatient (CLI) | payer MEDICARE | LOC: COL.RAD 08:19 | DX: N28.1 Cyst of kidney, acquired (principal); N20.0 Calculus of kidney | CPT/HCPCS: Q9967 ==

== ENCOUNTER → 2020-08-14 | Outpatient (CLI) | payer MEDICARE | LOC: MC.RAD 09:17 | DX: Z12.31 Encounter for screening mammogram for malignant neoplasm of breast (principal) ==

== ENCOUNTER 2021-04-11 11:00 | Outpatient (RCR) | payer MEDICARE | END 2021-05-08 | disposition home or self-care (01) | LOC: WSOT | DX: M77.8 Other enthesopathies, not elsewhere classified (principal) ==

== ENCOUNTER → 2021-09-04 | Outpatient (CLI) | payer OTHER | LOC: COL.RAD 09-03 10:30 | DX: N20.0 Calculus of kidney (principal); N28.1 Cyst of kidney, acquired; I12.9 Hypertensive chronic kidney disease with stage 1 through stage 4 chronic kidney disease, or unspecified chronic kidney disease; E11.22 Type 2 diabetes mellitus with diabetic chronic kidney disease; N18.32 Chronic kidney disease, stage 3b; E11.21 Type 2 diabetes mellitus with diabetic nephropathy ==

== ENCOUNTER → 2021-09-25 | Outpatient (CLI) | payer MEDICARE, OTHER | LOC: MC.RAD 10:08 | DX: Z12.31 Encounter for screening mammogram for malignant neoplasm of breast (principal) ==

== ENCOUNTER 2022-02-12 16:49 | Emergency (ER) | payer OTHER, MEDICARE ==
[~2022-02-12] VITALS: Ht 157.5 cm; Wt 95.5 kg
[2022-02-12] MEDS ORDERED: FLEXERIL 1010 MG/TAB PO (18:16)
[2022-02-12 18:23] VITALS: BP 157/80; PULSE 78
== END 2022-02-12 18:23 | disposition home or self-care (01) ==
LOC: COL.ER 16:49
DX: S13.9XXA Sprain of joints and ligaments of unspecified parts of neck, initial encounter (principal); S39.012A Strain of muscle, fascia and tendon of lower back, initial encounter; Z88.5 Allergy status to narcotic agent; Z98.890 Other specified postprocedural states; V49.9XXA Car occupant (driver) (passenger) injured in unspecified traffic accident, initial encounter; Y92.410 Unspecified street and highway as the place of occurrence of the external cause
CPT/HCPCS: J3010

== ENCOUNTER 2022-05-27 01:59 | Emergency (ER) | payer OTHER, MEDICARE ==
[~2022-05-27] VITALS: Ht 160 cm; Wt 104.5 kg
[2022-05-27 02:03] VITALS: TEMP 97.6
[2022-05-27 02:14] LABS: BASO % 0.5 % (0.0-2.0); EOS # 0.2 K/mm3 (0.0-0.7); EOS % 1.9 % (0.0-4.0); GRAN # 4.6 K/mm3 (1.4-6.5); GRAN % 55.4 % (42.2-75.2); HEMATOCRIT 37.9 % (37.0-47.0); HEMOGLOBIN 12.4 g/dl (12.5-16.0); LYMPH # 2.9 K/mm3 (1.2-3.4); LYMPH % 35.1 % (20.0-51.0); MEAN CELL VOLUME 91 fl (80.0-100.0); MEAN CORPUSCULAR HEMOGLOBIN 30 pg (27-31); MEAN CORPUSCULAR HGB CONC 33 g/dl (33.0-37.0); MEAN PLATELET VOLUME 9.6 fl (7.4-10.4); MONO # 0.6 K/mm3 (0.1-0.6); PLATELET COUNT 209 K/mm3 (130-400); RED BLOOD COUNT 4.19 M/mm3 (4.10-5.30); REDCELL DISTRIBUTION WIDTH-CV 14.7 % (11.5-14.5)
[2022-05-27 02:36] LABS: ALANINE AMINOTRANSFERASE 34 U/L (0-55); ALBUMIN 3.1 gm/dL (3.4-4.8); ALKALINE PHOSPHATASE 74 U/L (40-150); ANION GAP 9 mmol/L (7-16); AST,SGOT 23 U/L (5-34); BILIRUBIN,TOTAL 0.4 mg/dL (0.2-1.2); BLOOD UREA NITROGEN 12 mg/dL (10-20); CALCIUM 8.3 mg/dL (8.4-10.2); CARBON DIOXIDE 21 mmol/L (23-31); CHLORIDE 113 mmol/L (98-107); CREATININE, serum 1.28 mg/dL (0.57-1.11); GLUCOSE 144 mg/dL (70-99); POTASSIUM 4.4 mmol/L (3.5-4.5); SODIUM 143 mmol/L (136-145); TOTAL PROTEIN 5.7 gm/dL (6.2-8.1)
[2022-05-27 02:37] LABS: ARTERIAL BLD GAS O2 SATURATION 97.1 % (92-100); ARTERIAL BLD GAS TCO2 CT 21.5; ARTERIAL BLOOD GAS BASE EXCESS -5.1 (-2-2); ARTERIAL BLOOD GAS HCO3 20.3 meq/L (22-26); ARTERIAL BLOOD GAS PO2 97.8 mmHg (80-100); ARTERIAL BLOOD GAS pH 7.33 (7.35-7.45)
[2022-05-27 02:55] LABS: TSH w REFLEX 3.008 uIU/mL (0.350-4.940)
[2022-05-27 03:00] LABS: ALCOHOL(ethanol),MEDICAL < 10 mg/dL (0-10); SALICYLATE < 5.0 mg/dL (15.0-30.0)
[2022-05-27 03:03] LABS: COLLECTION METHOD CLEAN CATCH
[2022-05-27 03:12] LABS: BUDDING YEAST Present (NOT PRESENT); MUCOUS Present (NOT PRESENT); SQUAMOUS EPITHELIAL None Seen /hpf (0-10); URINE BACTERIA Rare /hpf (NONE SEEN); URINE RBC 20-50 /hpf (0-2)
[2022-05-27 03:14] LABS: URINE APPEARANCE Cloudy (CLEAR/HAZY); URINE BLOOD Negative (NEGATIVE); URINE COLOR Yellow (YELLOW); URINE GLUCOSE Negative (NEGATIVE); URINE KETONE TRACE (NEGATIVE); URINE NITRATE Negative (NEGATIVE); URINE PROTEIN(semi-quant) Negative (NEGATIVE); URINE UROBILINOGEN 0.2 E.U/dL (0.2-1.0)
[2022-05-27 03:29] LABS: TRICYCLIC ANTIDEPRESS URINE POSITIVE
[2022-05-27] MEDS ORDERED: MACROBID 1100 MG/CAP PO (15:11)
[2022-05-27 16:04] VITALS: BP 141/69; PULSE 58
[2023-04-10] MEDS ORDERED: MACROBID 1100 MG/CAP PO (18:02)
[2023-04-12] MEDS ORDERED: CEPHALEXIN500 M1 PO ×2 (16:08)
[2023-05-14] MEDS ORDERED: VANTIN 200200 MG/TAB PO (03:07)
== END 2022-05-27 16:04 | disposition home or self-care (01) ==
LOC: COL.ER 01:59
PROVIDERS: Family Medicine
DX: T39.1X1A Poisoning by 4-Aminophenol derivatives, accidental (unintentional), initial encounter (principal); N39.0 Urinary tract infection, site not specified; I95.9 Hypotension, unspecified; Z88.1 Allergy status to other antibiotic agents
CPT/HCPCS: J0696; J2310; J7030

== ENCOUNTER 2022-09-18 18:13 | Emergency (ER) | payer OTHER, MEDICARE ==
[~2022-09-18] VITALS: Ht 157.5 cm; Wt 99.1 kg
[~2022-09-18 18:13] MED LIST changes: +MACROBID 1100 MG/CAP PO
[2022-09-18 21:49] VITALS: BP 155/99; PULSE 98; TEMP 98.2
== END 2022-09-18 21:55 | disposition home or self-care (01) ==
LOC: COL.ER 18:13
DX: M25.552 Pain in left hip (principal); G89.29 Other chronic pain; Z96.642 Presence of left artificial hip joint; E66.9 Obesity, unspecified; Z68.39 Body mass index [BMI] 39.0-39.9, adult

== ENCOUNTER 2022-10-04 17:37 | Emergency (ER) | payer OTHER, MEDICARE ==
[~2022-10-04] VITALS: Ht 157.5 cm; Wt 95.5 kg
[2022-10-04 17:49] VITALS: BP 140/85; TEMP 98.4
[2022-10-04] MEDS ORDERED: CARAFATE S1 GM/10 ML PO ×2 (19:40→19:47)
[2022-10-04 19:47] VITALS: PULSE 87
== END 2022-10-04 19:47 | disposition home or self-care (01) ==
LOC: COL.ER 17:37
DX: K20.90 Esophagitis, unspecified without bleeding (principal); J90 Pleural effusion, not elsewhere classified

== ENCOUNTER 2023-05-23 10:11 | Emergency (ER) | payer OTHER, MEDICARE ==
[~2023-05-23] VITALS: Ht 157.5 cm; Wt 100.0 kg
[~2023-05-23 10:11] MED LIST changes: +CARAFATE S1 GM/10 ML PO; +VANTIN 200200 MG/TAB PO
[2023-05-23 10:25] VITALS: TEMP 98.2
[2023-05-23 11:20] LABS: COLLECTION METHOD CLEAN CATCH
[2023-05-23 11:55] LABS: URINE APPEARANCE Clear (CLEAR/HAZY); URINE BLOOD Negative (NEGATIVE); URINE COLOR Yellow (YELLOW); URINE GLUCOSE Negative (NEGATIVE); URINE KETONE Negative (NEGATIVE); URINE NITRATE Negative (NEGATIVE); URINE PROTEIN(semi-quant) Negative (NEGATIVE); URINE UROBILINOGEN 0.2 E.U/dL (0.2-1.0)
[2023-05-23 11:56] LABS: SQUAMOUS EPITHELIAL 0-2 /hpf (0-10); URINE BACTERIA Rare /hpf (NONE SEEN); URINE RBC None Seen /hpf (0-2)
[2023-05-23 13:53] VITALS: BP 116/53; PULSE 69
== END 2023-05-23 13:15 | disposition home or self-care (01) ==
LOC: COL.ER 10:11
PROVIDERS: Physician Assistant
DX: N39.0 Urinary tract infection, site not specified (principal); M25.561 Pain in right knee; Z96.651 Presence of right artificial knee joint; W19.XXXA Unspecified fall, initial encounter

== ENCOUNTER 2023-07-17 12:18 | Emergency (ER) | payer OTHER, MEDICARE ==
[~2023-07-17] VITALS: Ht 157.5 cm; Wt 98.6 kg
[2023-07-17 12:46] VITALS: TEMP 98.1
[2023-07-17 15:42] VITALS: BP 110/80; PULSE 74
== END 2023-07-17 15:40 | disposition home or self-care (01) ==
LOC: COL.ER 12:18
DX: S69.92XA Unspecified injury of left wrist, hand and finger(s), initial encounter (principal); W06.XXXA Fall from bed, initial encounter

== ENCOUNTER 2023-12-08 18:05 | Emergency (ER) | payer OTHER ==
[~2023-12-08] VITALS: Ht 157.5 cm; Wt 97.7 kg
[2023-12-08 18:09] VITALS: TEMP 98.5
[2023-12-08 19:11] LABS: BASO % 0.5 % (0.0-2.0); EOS # 0.2 K/mm3 (0.0-0.7); EOS % 3.5 % (0.0-4.0); GRAN # 4.2 K/mm3 (1.4-6.5); GRAN % 66.4 % (42.2-75.2); HEMOGLOBIN 11.9 g/dl (12.5-16.0); LYMPH # 1.5 K/mm3 (1.2-3.4); LYMPH % 23.9 % (20.0-51.0); MEAN CELL VOLUME 98 fl (80.0-100.0); MEAN CORPUSCULAR HEMOGLOBIN 32 pg (27-31); MEAN CORPUSCULAR HGB CONC 33 g/dl (33.0-37.0); MEAN PLATELET VOLUME 10.1 fl (7.4-10.4); MONO # 0.4 K/mm3 (0.1-0.6); MONO % 5.5 % (1.7-9.3); PLATELET COUNT 208 K/mm3 (130-400); RED BLOOD COUNT 3.73 M/mm3 (4.10-5.30)
[2023-12-08 19:12] LABS: HEMATOCRIT 36.6 % (37.0-47.0)
[2023-12-08 19:40] LABS: ALBUMIN 3.6 g/dL (3.4-4.8); BILIRUBIN,TOTAL 0.3 mg/dL (0.2-1.2); CALCIUM 9.3 mg/dL (8.4-10.2); CREATININE, serum 1.17 mg/dL (0.57-1.11); POTASSIUM 3.8 mEq/L (3.5-4.5); TOTAL PROTEIN 6.4 g/dl (6.2-8.1)
[2023-12-08 20:48] LABS: COLLECTION METHOD CLEAN CATCH
[2023-12-08 20:53] LABS: URINE APPEARANCE CLEAR (CLEAR/HAZY); URINE BLOOD NEGATIVE (NEGATIVE); URINE COLOR YELLOW (YELLOW); URINE GLUCOSE NEGATIVE (NEGATIVE); URINE KETONE NEGATIVE (NEGATIVE); URINE NITRATE NEGATIVE (NEGATIVE); URINE PROTEIN(semi-quant) NEGATIVE (NEGATIVE); URINE UROBILINOGEN 0.2 E.U/dL (0.2-1.0)
[2023-12-08] MEDS ORDERED: Iohexol 300 - 100 ML VIAL IV ONE (21:03)
[2023-12-08] MEDS ORDERED: NS 100 ML IV ONE (21:04)
[2023-12-08 22:36] VITALS: BP 165/63; PULSE 73
== END 2023-12-08 22:36 | disposition home or self-care (01) ==
LOC: COL.ER 18:05
PROVIDERS: Nurse Practitioner
DX: R10.32 Left lower quadrant pain (principal)
CPT/HCPCS: Q9967

== ENCOUNTER → 2024-01-02 | Outpatient (CLI) | payer OTHER | LOC: MC.RAD 09:17 | DX: Z12.31 Encounter for screening mammogram for malignant neoplasm of breast (principal) ==